=== PATIENT | male | born 2000 | race Caucasian/White ===

== ENCOUNTER 2021-06-14 16:15 | Emergency (ER) | payer MEDICAID, OTHER ==
[~2021-06-14] VITALS: Ht 180.3 cm; Wt 74.8 kg
[2021-06-14 16:17] VITALS: BP 121/73
== END 2021-06-14 17:47 | disposition home or self-care (01) ==
LOC: ER 16:15
DX: J20.9 Acute bronchitis, unspecified (principal); J03.90 Acute tonsillitis, unspecified
CPT/HCPCS: 71046